=== PATIENT | male | born 2000 | race Two or more races ===

== ENCOUNTER 2024-02-20 17:51 | Emergency (ER) | payer MEDICAID, SELFPAY ==
[2024-02-20 17:57] VITALS: BP 145/79; PULSE 92; RESP 18; TEMP 37.2; O2SAT 98; BMI 27.3
--- NOTE | 2024-02-20 18:31 | PD.EDURI ---
Upper Respiratory Inf. RME/HPI General Chief Complaint: Flu Like Symptoms Stated Complaint: congestion x 1 week, fever, headache Time Seen by Provider: 02/20/24 18:28 Arrival date/time: 02/20/24 17:51 23M with no significant PMH presents to ED with 1 week of nasal congestion, sore throat, SINGH, and fevers/chills. Patient also notes he blew his nose the other day and some blood came out. Limitations: no limitations Related Data Allergies Allergy/AdvReac Type Severity Reaction Status Date / Time NKA* Allergy Uncoded 02/20/24 17:52 Review of Systems Review of Systems Systems Reviewed: All systems reviewed, normal except as documented Constitutional Constitutional: Reports system reviewed and no additional complaints, except as documented, Reports as per HPI, Reports chills, Reports fever(s) and Reports headache(s) ENT Ears, Nose, Mouth, and Throat: Reports as per HPI, Denies disequilibrium, Reports headache(s), Reports nasal congestion and Reports sore throat Cardiovascular Cardiovascular: Reports system reviewed and no additional complaints, except as documented, Denies chest pain and Denies dyspnea Respiratory Respiratory: Reports system reviewed and no additional complaints, except as documented, Denies cough and Denies dyspnea Gastrointestinal Gastrointestinal: Reports system reviewed and no additional complaints, except as documented, Denies abdominal pain, Denies nausea and Denies vomiting Neurologic Neurologic: Reports system reviewed and no additional complaints, except as documented, Denies confusion, Denies disequilibrium and Reports headache(s) Psychiatric Psychiatric: Denies confusion Past Medical History Social History SMOKING STATUS: Current every day smoker ED Exam General Limitations: Present no limitations General appearance: Present alert and in no apparent distress Head Head exam: Present atraumatic Eye Eye exam: Present normal appearance, PERRL and EOMI ENT ENT exam: Present mucous membranes moist Expanded ENT Exam Throat exam: Present tonsillar erythema; Absent tonsillomegaly, tonsillar exudate, R peritonsillar mass, L peritonsillar mass or muffled voice Neck Neck exam: Present normal inspection, full ROM and trachea midline Chest Chest inspection: Present normal inspection and symmetric chest wall rise Respiratory Respiratory exam: Present normal lung sounds bilaterally Cardiovascular Cardiovascular exam: Present regular rate, normal rhythm and normal heart sounds Abdominal Exam Abdominal exam: Present soft and normal bowel sounds Extremities Exam Extremities exam: Present normal inspection and full ROM Back Exam Back exam: Present normal inspection and full ROM Neurological Exam Neurological exam: Present alert, oriented X3 and CN II-XII intact Psychiatric Psychiatric exam: Present normal affect and normal mood Skin Skin exam: Present warm, dry, intact and normal color Course Quality Measures none Orders Category Date Time Status Bedside Influenza A&B Antigen Test NOW Care 02/20/24 18:29 Completed Strep A Rapid Stat Lab 02/20/24 18:35 Completed Dexamethasone Inj [Decadron Inj] Med 02/20/24 18:30 Discontinued 10 mg PO X1 ONE Vital Signs Vital signs: Vital Signs Temperature 98.9 F 02/20/24 17:57 Pulse Rate 92 02/20/24 17:57 Respiratory Rate 18 02/20/24 17:57 Blood Pressure 145/79 H 02/20/24 17:57 Pulse Oximetry (%) 98 02/20/24 17:57 Oxygen Delivery Method Room Air 02/20/24 17:57 O2 at 98% on RA and WNLs Upper Respiratory Infection MDM Narrative MDM Narrative:: 23M with no significant PMH presents to ED with 1 week of nasal congestion, sore throat, SNIGH, and fevers/chills. Patient also notes he blew his nose the other day and some blood came out. Physical exam reveals red oropharynx. Mild sinus tenderness. Clear lungs. ENT clear. Normal pupil response and EOM. No neck tenderness. ROM intact. Patient is afebrile, calm, and alert. Patient eloped prior to DC. Patient data External records reviewed:: [facility] previous records Clinical information provided by:: patient Social determinants that could affect healthcare access:: none Patient has the following chronic illnesses:: none How is presenting disease/condition affected by chronic disease/condition?: no chronic disease Evaluation data The following diagnostics were reviewed and interpreted by me:: lab results Lab and/or radiology exams considered but not ordered:: ordered Interpretation Summary: above Medications / Prescriptions Medications or Prescriptions considered but not ordered:: ordered Medication administrations:: Medication Administration History Discontinued Medications Dexamethasone Sodium Phosphate (Dexamethasone Sod Phos Inj 10 Mg/Ml Vial) 10 mg PO X1 ONE Stop: 02/20/24 18:31 Last Admin: 02/20/24 19:21 Dose: 10 mg Documented By: GB above Consultations Consultation(s) initiated? (list below): No Diagnosis Upper Respiratory Differential Diagnosis: upper respiratory infection, croup, otitis media, sinusitis, viral infection, bronchitis, influenza and pharyngitis Most likely diagnosis given after review of the tests above:: sinusitis Admission Indicated Admission indicated?: not indicated Admission Request Was there a request for admission?: No Disposition Plan Disposition Plan: other (specify) (eloped) Discharge Plan Plan Patient Disposition: Elopement Prescriptions/Referrals Referrals: Giles Stoner [Primary Care Provider] - In 1 week Problem List Clinical Impression: Sinusitis Patient/Caregiver Discharge Instructions Print Language: Liberian PA/RESIDENTIAL TEAM LEADER Supervising Physician PA/RESIDENTIAL TEAM LEADER Supervising Physician: Dr. Vázquez
[2024-02-20 19:05] LABS: Strep A Rapid Negative (Negative)
[2024-02-20] MEDS: DEXAMETHASONE SOD PHOS INJ 10 MG/ML VIAL PO (19:21)
== END 2024-02-20 20:10 | disposition left against medical advice (07) ==
PROVIDERS: Physician Assistant; Emergency Provider Emergency Medicine; PCP Physician Assistant
DX: J32.9 Chronic sinusitis, unspecified (principal)
CPT/HCPCS: 87400; 87651; 99283; J1100

== ENCOUNTER 2024-08-10 14:58 | Emergency (ER) | payer MEDICAID, SELFPAY ==
[2024-08-10 15:08] VITALS: BP 121/75; PULSE 56; RESP 18; TEMP 37.2; O2SAT 98; BMI 26.0
--- NOTE | 2024-08-10 15:34 | EKG_ITS ---
[facility] Test Date: 2024-08-10 Pat Name: HALI ZIMMERMAN Department: Room: - Gender: Male Rn Gyn: : 2000 Requested By: Tres Rodriguez Order Number: [id number] Reading MD: Tres Rodriguez Measurements Intervals [place] Rate: 49 P: 39 AL: 128 QRS: 50 QRSD: 89 T: 30 QT: 415 QTc: 376 Interpretive Statements SINUS BRADYCARDIA No previous ECG available for comparison /store/[email or web address]/[id number].pdf
--- NOTE | 2024-08-10 15:44 | EDNOTE_ITS ---
ED General RME/HPI General Chief complaint: Dizziness Stated complaint: Dizzy since this morning at 0900 Time Seen by Provider: 08/10/24 15:18 Arrival date/time: 08/10/24 14:58 Limitations: no limitations RME / HPI RME / HPI narrative: DR. LION MAIN ED EVALUATION: 23 year old male presents to the Emergency Department with complaints of off- balance feeling and light-headedness onset yesterday. Patient stumbles to the right when he walks but is able to maintain balance. Associated symptoms include generalized weakness for 2 days as well. PMHx: Denies any PMHx, surgeries, daily medications, or known allergies. Social Hx: No tobacco, alcohol, or substance use. Related Data Previous Rx's ?Medication ?Instructions ?Recorded meclizine 25 mg tablet 25 mg PO BID PRN dizziness # 10 tabs 08/10/24 Allergies Allergy/AdvReac Type Severity Reaction Status Date / Time NKA* Allergy Uncoded 08/10/24 15:02 Review of Systems Review of Systems Systems Reviewed: All systems reviewed, normal except as documented Past Medical History Social History SMOKING STATUS: Never smoker SUBSTANCE USE: does not use ALCOHOL: Never ED Exam General Limitations: Present no limitations General appearance: Present alert and in no apparent distress Head Head exam: Present atraumatic, normocephalic and normal inspection Eye Eye exam: Present normal appearance, PERRL, EOMI and nystagmus ENT ENT exam: Present normal exam, normal oropharynx and mucous membranes moist Neck Neck exam: Present normal inspection, full ROM and trachea midline Chest Chest inspection: Present normal inspection and symmetric chest wall rise Respiratory Respiratory exam: Present normal lung sounds bilaterally Cardiovascular Cardiovascular exam: Present regular rate, normal rhythm and normal heart sounds Abdominal Exam Abdominal exam: Present soft and normal bowel sounds Extremities Exam Extremities exam: Present normal inspection and full ROM Back Exam Back exam: Present normal inspection and full ROM Neurological Exam Neurological exam: Present alert, oriented X3, CN II-XII intact and other (Patient stumbles to the right when he walks but is able to maintain balance. ) Psychiatric Psychiatric exam: Present normal affect and normal mood Skin Skin exam: Present warm, dry, intact and normal color Course Quality Measures none Orders Category Date Time Status EKG (ED ONLY) *Do not use* NOW Care 08/10/24 15:34 Completed EKG (ED Only) Stat Exams 08/10/24 15:34 Draft CBC Stat Lab 08/10/24 16:12 Completed CMP [Comprehensive Metabolic Panel] Stat Lab 08/10/24 16:12 Completed TSH [Thyroid Stimulating Hormone] Stat Lab 08/10/24 16:12 Completed Urinalysis Stat Lab 08/10/24 15:46 Completed Vital Signs Vital signs: Vital Signs Temperature 98.9 F 08/10/24 15:08 Pulse Rate 56 L 08/10/24 15:08 Respiratory Rate 18 08/10/24 15:08 Blood Pressure 121/75 08/10/24 15:08 Pulse Oximetry (%) 98 08/10/24 15:08 Oxygen Delivery Method Room Air 08/10/24 15:08 Discharge Plan Plan Patient Disposition: HOME (Self Care) Patient condition on transfer: Stable Prescriptions/Referrals Prescriptions/Med Rec: New meclizine 25 mg tablet 25 mg PO BID PRN (Reason: dizziness) Qty: 10 0RF Referrals: Brayan Calvin PA-C [Primary Care Provider] - In 1 week Problem List Clinical Impression: Acute labyrinthitis Patient/Caregiver Discharge Instructions Discharge Activity: activity as tolerated Other Activity Instructions:: While dizzy, you should avoid driving or any activity that requires balancing Education Materials: ED Labyrinthitis Print Language: Kazakh Stand Alone Forms: Lissa Award Info., Patient Portal Info Letter MDM Clinical Information Provided by patient Medical Records Reviewed None (no previous visits) Meds/Rx Considered, not Ordered None Labs/Rad/Tests considered, not Ordered None Chronic Illness/Social Conditions Add or document further as needed: Denies any PMHx, surgeries, daily medications, or known allergies. EKG EKG Interpretation narrative: My interpretation: EKG performed at 1535 hours, sinus bradycardia, rate 49, no STEMI Imaging Imaging interpretation: none Medication Administration(s) none Diagnosis Differential diagnosis: dizziness, vertigo Most likely dx, and/or detailed dx discussion: Acute labyrinthitis Dispositon Disposition: Discharge Home
[2024-08-10 16:19] LABS: Collection Type, Urine Clean Catch; Squamous Epithelial Cell,Urine 0 /hpf (0-5)
[2024-08-10 16:20] LABS: Basophils # (Auto) 0.1 Thou/mm3 (0.0-0.2); Basophils % (Auto) 1 % (0-2.5); Eosinophils # (Auto) 0.2 Thou/mm3 (0.0-0.5); Eosinophils % (Auto) 3 % (0-10); Hematocrit 38.5 % (41.0-53.0); Hemoglobin 13.7 g/dL (13.5-16.0); Immature Granulocytes % (Auto) 0 % (0-0); Immature Granulocytes Auto 0.01 Thou/mm3 (0.00-0.00); Lymphocytes # (Auto) 2.4 Thou/mm3 (1.0-4.8); Lymphocytes % (Auto) 35 % (10-50); Mean Corpuscular HGB Conc 35.6 g/dl (31.0-37.0); Mean Corpuscular Hemoglobin 30.2 pg (25.0-35.0); Mean Corpuscular Volume 85 fL (80-100); Monocytes # (Auto) 0.5 Thou/mm3 (0.0-0.8); Monocytes % (Auto) 8 % (0-12); Neutrophils # (Auto) 3.8 Thou/mm3 (1.8-7.7); Neutrophils % (Auto) 54 % (37-80); Nucleated Red Blood Cell % 0 /100 WBC (0); Platelet Count 194 Thou/mm3 (140-440); Red Blood Count 4.54 Miln/mm3 (4.50-5.90); White Blood Count 6.9 Thou/mm3 (3.8-10.6)
[2024-08-10 16:27] LABS: Bilirubin,Urine Negative (Negative); Blood,Urine Negative (Negative); Clarity,Urine Clear (Clear/Hazy); Color,Urine Lt-Yellow (Lt Yel-Yel); Glucose, Urine Negative (Negative); Hyaline Casts,Urine < 1 /hpf (0-1); Ketones,Urine Negative (Negative); Leukocyte Esterase,Urine Positive (Negative); Nitrite,Urine Negative (Negative); PH,Urine 6.5 (5.0-7.0); Protein,Urine Negative (Neg - Trace); RBC,Urine 3 /hpf (0-3); Specific Gravity,Urine 1.017 (1.001-1.035); Urobilinogen,Urine Negative mg/dL (0.0-1.0); WBC,Urine 22 /hpf (0-5)
[2024-08-10 16:52] LABS: Alanine Aminotransferase 17 U/L (10-49); Albumin, Serum 4.8 gm/dL (3.5-5.0); Albumin/Globulin Ratio 2.5 (1.2-2.2); Alkaline Phosphatase 61 U/L (46-116); Anion Gap 9 (7-16); Aspartate Amino Transferase 18 U/L (0-34); BUN/Creatinine Ratio 8 Ratio (12-20); Blood Urea Nitrogen 7 mg/dL (9-23); Calcium 8.9 mg/dL (8.3-10.6); Calcium (Corrected) 8.9 mg/dL (8.5-10.1); Carbon Dioxide 26.4 mMol/L (20.0-31.0); Chloride 108 mMol/L (98-107); Creatinine (Component) 0.9 mg/dL (0.6-1.3); Estimated Creatinine Clearance 132.9 mL/min (>60); Globulin 1.9 gm/dL (2.3-3.5); Glucose 92 mg/dL (74-106); Osmolality,Calculated 282 (275-295); Potassium 3.8 mMol/L (3.4-5.1); Sodium 143 mMol/L (136-145); Thyroid Stimulating Hormone 0.63 uIU/mL (0.55-4.78); Total Protein 6.7 gm/dL (5.7-8.2); eGFR > 60 See Note
[2024-08-10 19:02] VITALS: BP 126/78; PULSE 60; RESP 16; TEMP 36.7; O2SAT 97
== END 2024-08-10 19:02 | disposition home or self-care (01) ==
PROVIDERS: Emergency Provider Emergency Medicine; PCP Family Medicine
DX: H83.09 Labyrinthitis, unspecified ear (principal); R00.1 Bradycardia, unspecified
CPT/HCPCS: 36415; 80053; 81001; 84443; 85025; 93005; 99283